=== PATIENT | male | born 1935 | race American Indian/Alaskan Native ===

== ENCOUNTER 2021-12-06 13:46 | Emergency (ER) | payer MEDICARE ==
--- NOTE | 2021-12-06 13:55 | Emergency Department Report ---
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 After clarification with family it seems that patient was normal earlier today and went to [place] for outpatient chest x-ray. They returned about 11:50 AM. Around 12:15 PM he noticed that he was lethargic and unresponsive and " weight". After his stroke in October patient was discharged from here to rehab facility. Since he has been home he is typically alert, can have a conve rsation, but is unable to ambulate and requires assistance for transfer but can assist with scooting up in the bed. Family does not recall if patient has specific unilateral weakness but as per medical record patient did have some right sided weakness with previous left thalmic stroke. Patient currently presents with aphasia, left gaze preference, and right arm paralysis. Code stroke initiated upon arrival and telemetry neurologist consulted. EMS also reported that 2 days ago patient was diagnosed with DVT and started on Eliquis. They state family has not filled the prescription. I have been unable to confirm this with the family since they are not answering my calls (despite multiple attempts) after initial conversation. Mrs Maier [phone] - Related Data Home Medications: Home Medications Medication Instructions Recorded Confirmed Last Taken Aspirin [Aspirin BABY CHEW TAB] 81 mg PO DAILY 10/28/21 10/28/21 10/27/21 Insulin Detemir [Levemir VIAL] 20 unit SQ QHS 10/28/21 11/01/21 10/26/21 Metformin HCl [metFORMIN] 1,000 mg PO BID 10/28/21 11/01/21 10/27/21 Tamsulosin [Flomax] 0.4 mg PO DAILY 10/28/21 11/01/21 10/27/21 allopurinoL [Zyloprim] 100 mg PO BID 10/28/21 10/28/21 10/27/21 amLODIPine 10 mg PO DAILY 10/28/21 11/01/21 10/27/21 Previous Rx's Medication Instructions Recorded Last Taken Type AtorvaSTATin [Lipitor] 40 mg PO QHS #30 tablet 11/03/21 Unknown Rx dexAMETHasone [Dexamethasone] 4 mg PO DAILY #6 tablet 11/03/21 Unknown Rx Allergies/Adverse Reactions: Allergies Allergy/AdvReac Type Severity Reaction Status Date / Time No Known Allergies Allergy Verified 11/01/21 15:28 ED Review of Systems ROS: Stated complaint: STROKE-LIKE SYMPTOMS Other details as noted in HPI Comment: Unobtainable due to pts medical conditions ED Past Medical Hx - Past Medical History Hx Diabetes: Yes Hx HIV: No - Social History Smoking Status: Unknown if ever smoked - Medications Home Medications: Home Medications Medication Instructions Recorded Confirmed Last Taken Type Aspirin [Aspirin BABY CHEW TAB] 81 mg PO DAILY 10/28/21 10/28/21 10/27/21 History Insulin Detemir [Levemir VIAL] 20 unit SQ QHS 10/28/21 11/01/21 10/26/21 History Metformin HCl [metFORMIN] 1,000 mg PO BID 10/28/21 11/01/21 10/27/21 History Tamsulosin [Flomax] 0.4 mg PO DAILY 10/28/21 11/01/21 10/27/21 History allopurinoL [Zyloprim] 100 mg PO BID 10/28/21 10/28/21 10/27/21 History amLODIPine 10 mg PO DAILY 10/28/21 11/01/21 10/27/21 History AtorvaSTATin [Lipitor] 40 mg PO QHS #30 tablet 11/03/21 Unknown Rx dexAMETHasone [Dexamethasone] 4 mg PO DAILY #6 tablet 11/03/21 Unknown Rx ED Neuro Physical Exam - General Suspected Stroke: Yes - NIHSS Assessment Interval: Baseline 1a. Level of Consciousness: alert/keenly responsive 1b. LOC Questions: answers no questions correctly 1c. LOC Commands: performs no tasks correctly 2. Best Gaze: forced deviation 3. Visual: partial hemianopia 4. Facial Palsy: minor paralysis 5b. Motor Arm Right: no movement 5a. Motor Arm Left: no drift 6a. Motor Leg Left: no gravity effort 6b. Motor Leg Right: no gravity effort 7. Limb Ataxia: absent 8. Sensory: mild/moderate sensory loss 9. Best Language: mute/global aphasia 10. Dysarthria: severe dysarthria 11. Extinction/Inattention: no abnormality Total Score: 24 Stroke Severity: Severe Stroke - Other Other exam information: General: No acute distress Head: Atraumatic Eyes: normal appearance ENT: Moist mucous membranes Neck: Normal appearance, no midline tenderness Chest: Clear to auscultation bilaterally CV: Regular rate and rhythm Abdomen: Soft, normal bowel sounds, nontender, nondistended, no rebound or guarding Back: Normal inspection Extremity: Normal inspection, full range of motion Neuro: Alert O x 3, see NIH stroke Psych: Appropriate behavior ED Course Vital Signs 12/06/21 12/06/21 12/06/21 14:28 15:00 15:03 Pulse Rate 104 H 101 H 104 H Respiratory 18 17 Rate Blood Pressure 104/64 112/64 95/55 [Left] O2 Sat by Pulse 91 91 91 Oximetry 12/06/21 15:10 Pulse Rate Respiratory Rate Blood Pressure [Left] O2 Sat by Pulse 95 Oximetry - Reevaluation(s) Reevaluation #1: 12/06/21 15:00 I spoke to family shortly after pt's return from CT and they clarified - Consultations Consultation #1: 12/06/21 Neuro consulted upon pt's arrival to ed. Case discussed multiple times. pt not a tpa candidate due to montilla-white matter changes identified on CTA head. Recommend transfer for intervention Consultation #2: 12/06/21 15:00 neuro interventionalist at [place] Dr Pearson. ct images sent to [facility]. family contact number provided 12/06/21 15:20 patient accepted - Lab Data Result diagrams: 12/06/21 14:32 12/06/21 14:32 Lab Results 12/06/21 12/06/21 12/06/21 Range/Units 14:32 14:32 14:32 WBC 8.2 (4.5-11.0) K/mm3 RBC 4.53 (3.65-5.03) M/mm3 Hgb 12.9 (11.8-15.2) gm/dl Hct 39.9 (35.5-45.6) % MCV 88 (84-94) fl MCH 29 (28-32) pg MCHC 32 (32-34) % RDW 15.2 (13.2-15.2) % Plt Count 184 (140-440) K/mm3 Lymph % (Auto) 11.3 L (13.4-35.0) % [place] % (Auto) 6.8 (0.0-7.3) % Eos % (Auto) 0.8 (0.0-4.3) % Baso % (Auto) 0.2 (0.0-1.8) % Lymph # (Auto) 0.9 L (1.2-5.4) K/mm3 [place] # (Auto) 0.6 (0.0-0.8) K/mm3 Eos # (Auto) 0.1 (0.0-0.4) K/mm3 Baso # (Auto) 0.0 (0.0-0.1) K/mm3 Seg Neutrophils % 80.9 H (40.0-70.0) % Seg Neutrophils # 6.6 (1.8-7.7) K/mm3 PT 17.4 H (12.2-14.9) Sec. INR 1.29 H (0.87-1.13) APTT 30.7 (24.2-36.6) Sec. Thrombin Time 18.4 (15.1-19.6) Sec. Sodium 130 L (137-145) mmol/L Potassium 4.5 (3.6-5.0) mmol/L Chloride 104.2 (98-107) mmol/L Carbon Dioxide 12 L (22-30) mmol/L Anion Gap 18 mmol/L BUN 37 H (9-20) mg/dL Creatinine 1.2 (0.8-1.3) mg/dL Estimated GFR > 60 ml/min BUN/Creatinine Ratio 31 % Glucose 131 H (75-100) mg/dL POC Glucose (70-105) mg/dL Calcium 8.5 (8.4-10.2) mg/dL Total Bilirubin 0.30 (0.1-1.2) mg/dL AST 13 (5-40) units/L ALT 13 (7-56) units/L Alkaline Phosphatase 77 (35-129) units/L Total Creatine Kinase 18 L (55-170) units/L CK-MB (CK-2) 1.8 (0.0-4.0) ng/mL CK-MB (CK-2) Rel Index 10.0 H (0-4) Troponin T < 0.010 (0.00-0.029) ng/mL Total Protein 6.2 L (6.3-8.2) g/dL Albumin 2.7 L (3.9-5) g/dL Albumin/Globulin Ratio 0.8 % 12/06/21 Range/Units 15:33 WBC (4.5-11.0) K/mm3 RBC (3.65-5.03) M/mm3 Hgb (11.8-15.2) gm/dl Hct (35.5-45.6) % MCV (84-94) fl MCH (28-32) pg MCHC (32-34) % RDW (13.2-15.2) % Plt Count (140-440) K/mm3 Lymph % (Auto) (13.4-35.0) % [place] % (Auto) (0.0-7.3) % Eos % (Auto) (0.0-4.3) % Baso % (Auto) (0.0-1.8) % Lymph # (Auto) (1.2-5.4) K/mm3 [place] # (Auto) (0.0-0.8) K/mm3 Eos # (Auto) (0.0-0.4) K/mm3 Baso # (Auto) (0.0-0.1) K/mm3 Seg Neutrophils % (40.0-70.0) % Seg Neutrophils # (1.8-7.7) K/mm3 PT (12.2-14.9) Sec. INR (0.87-1.13) APTT (24.2-36.6) Sec. Thrombin Time (15.1-19.6) Sec. Sodium (137-145) mmol/L Potassium (3.6-5.0) mmol/L Chloride (98-107) mmol/L Carbon Dioxide (22-30) mmol/L Anion Gap mmol/L BUN (9-20) mg/dL Creatinine (0.8-1.3) mg/dL Estimated GFR ml/min BUN/Creatinine Ratio % Glucose (75-100) mg/dL POC Glucose 112 H (70-105) mg/dL Calcium (8.4-10.2) mg/dL Total Bilirubin (0.1-1.2) mg/dL AST (5-40) units/L ALT (7-56) units/L Alkaline Phosphatase (35-129) units/L Total Creatine Kinase (55-170) units/L CK-MB (CK-2) (0.0-4.0) ng/mL CK-MB (CK-2) Rel Index (0-4) Troponin T (0.00-0.029) ng/mL Total Protein (6.3-8.2) g/dL Albumin (3.9-5) g/dL Albumin/Globulin Ratio % - EKG Data -: EKG Interpreted by Sc EKG shows normal: sinus rhythm, intervals (qtc 422), QRS complexes (qrsd 79), ST-T waves (no stemi) Rate: tachycardia (102) - Radiology Data Radiology results: report reviewed CT HEAD WITHOUT CONTRAST INDICATION : CODE STROKE CALL [phone]. TECHNIQUE: Axial imaging performed from the skull apex through the skull base without the use of contrast. Sagittal and coronal reformatted images. All CT scans at this location are performed using CT dose reduction for [employer] by means of automated exposure control. COMPARISON: 10/28/2021 FINDINGS: Parenchyma: Advanced volume loss and chronic white matter changes are again noted. Chronic lacunar infarct in the left anterior basal ganglia is noted. Multiple focal chronic infarcts in the po sterior cerebellar hemispheres are also noted and unchanged. No acute parenchymal abnormality, hemorrhage or extra-axial fluid collection is detected. Ventricles: Ventricles are normal in size and appear symmetric. Bones: No acute osseous abnormality. Sinuses: There is extensive mucosal thickening and fluid in the right maxillary sinus which is unchanged. The remaining sinuses are clear. There is moderate fluid in the left mastoid air cells which is unchanged. Soft tissues: Soft tissues including the orbits appear normal. IMPRESSION: No acute intracranial abnormality is appreciated. Chronic findings as described above which are unchanged since 10/28/2021. CT angio head HISTORY: stroke sx 100 ML OMNI 350 COMPARISON: CTA head from October 28, 2021. TECHNIQUE: CTA of the head is performed after IV contrast. 3-D/MIP reformats were postprocessed. Percentage stenosis is determined by direct quantitative measurements of diseased internal carotid artery diameter compared with normal distal internal carotid artery reference segments or by criteria similar to NASCET where applicable. All CT scans at this location are performed using CT dose reduction for [employer] by means of automated exposure control. FINDINGS: CTA HEAD: Intracranial internal carotid arteries: No occlusion or significant stenosis. Anterior cerebral arteries: No occlusion or significant stenosis. Middle cerebral arteries: Just after the bifurcation, there is a left into superior MCA occlusion. Intracranial vertebral arteries: No occlusion or significant stenosis. Basilar artery: No occlusion or significant stenosis. Posterior cerebral arteries: No occlusion or significant stenosis. No aneurysm. Additional findings: Loss of montilla-white matter differentiation along the left insula, for example on image 141 of series 3. IMPRESSION: 1. CTA HEAD: Left proximal M2 MCA branch occlusion with developing left with infarction seen along the left insula. Informed DR. Keyes at at 1:15 CT HEAD WITHOUT CONTRAST INDICATION : CODE STROKE CALL [phone]. TECHNIQUE: Axial imaging performed from the skull apex through the skull base without the use of contrast. Sagittal and coronal reformatted images. All CT scans at this location are performed using CT dose reduction for ALARA by means of automated exposure control. COMPARISON: 10/28/2021 FINDINGS: Parenchyma: Advanced volume loss and chronic white matter changes are again noted. Chronic lacunar infarct in the left anterior basal ganglia is noted. Multiple focal chronic infarcts in the po sterior cerebellar hemispheres are also noted and unchanged. No acute parenchymal abnormality, hemorrhage or extra-axial fluid collection is detected. Ventricles: Ventricles are normal in size and appear symmetric. Bones: No acute osseous abnormality. Sinuses: There is extensive mucosal thickening and fluid in the right maxillary sinus which is unchanged. The remaining sinuses are clear. There is moderate fluid in the left mastoid air cells which is unchanged. Soft tissues: Soft tissues including the orbits appear normal. IMPRESSION: No acute intracranial abnormality is appreciated. Chronic findings as described above which are unchanged since 10/28/2021. - Medical Decision Making 86-year-old male presents to the hospital with acute stroke symptoms with NIH stroke scale 24. Unfortunately, patient's not a tPA candidate given montilla-white matter changes seen on CT angiogram. Patient however does have large vessel occlusion at the proximal M2 segment which may be amenable to emergent intervention. Patient instructed by [place] interventional neurologist for transfer and treatment. After initial conversation to clarify history of present illness I have been unsuccessful in recontacting patient's despite multiple attempts. phone rings, goes to [employer], and a message was left to call the ED. Number also provided to interventionalist as point of contact. Critical Care Time: Yes Critical care time in (mins) excluding proc time.: 75 Critical care attestation.: If time is entered above; I have spent that time in minutes in the direct care of this critically ill patient, excluding procedure time. Critical Care Time: 75 Minutes of critical care time excluding procedures were used in the care of the patient. I came immediately to the bedside upon patient's arrival. I obtained history from EMS at the bedside. I discussed treatment plan with the nursing team members. I reviewed electronic record. I spoke with family to obtain medical history. Patient required multiple interventions and reassessments. I consulted with telemetry neurologist and neuro application architect and coordinated emergent transfer to [facility]. ED Disposition Clinical Impression: Acute CVA (cerebrovascular accident), Acute ischemic left MCA stroke Disposition: 02 SHORT TERM HOSPITAL Is pt being admited?: No Condition: Stable Time of Disposition: 15:50
--- NOTE | 2021-12-06 14:16 | Cat Scan Report ---
CT HEAD WITHOUT CONTRAST INDICATION : CODE STROKE CALL [phone]. TECHNIQUE: Axial imaging performed from the skull apex through the skull base without the use of con trast. Sagittal and coronal reformatted images. All CT scans at this location are performed using C T dose reduction for ALARA by means of automated exposure control. COMPARISON: 10/28/2021 FINDINGS: Parenchyma: Advanced volume loss and chronic white matter changes are again noted. Chronic lacunar i nfarct in the left anterior basal ganglia is noted. Multiple focal chronic infarcts in the posterior cerebellar hemispheres are also noted and unchanged. No acute parenchymal abnormality, hemorrhage or extra-axial fluid collection is detected. Ventricles: Ventricles are normal in size and appear symmetric. Bones: No acute osseous abnormality. Sinuses: There is extensive mucosal thickening and fluid in the right maxillary sinus which is uncha nged. The remaining sinuses are clear. There is moderate fluid in the left mastoid air cells which is unchanged. Soft tissues: Soft tissues including the orbits appear normal. IMPRESSION: No acute intracranial abnormality is appreciated. Chronic findings as described above whi ch are unchanged since 10/28/2021. CODE STROKE: Time of Communication (TRAFFIC LIEUTENANT/CDT): 1311 hours Licensed Practitioner Receiving Report: GEN Phan Signer Name: Bar Guthrie Jr, MD Signed: 12/06/2021 2:12 PM Workstation Name: [id number]
--- NOTE | 2021-12-06 14:21 | Cat Scan Report ---
CT angio head HISTORY: stroke sx 100 ML OMNI 350 COMPARISON: CTA head from October 28, 2021. TECHNIQUE: CTA of the head is performed after IV contrast. 3-D/MIP reformats were postprocessed. Per centage stenosis is determined by direct quantitative measurements of diseased internal carotid arter y diameter compared with normal distal internal carotid artery reference segments or by criteria medina lar to NASCET where applicable. All CT scans at this location are performed using CT dose reduction f or ALARA by means of automated exposure control. FINDINGS: CTA HEAD: Intracranial internal carotid arteries: No occlusion or significant stenosis. Anterior cerebral arteries: No occlusion or significant stenosis. Middle cerebral arteries: Just after the bifurcation, there is a left into superior MCA occlusion. Intracranial vertebral arteries: No occlusion or significant stenosis. Basilar artery: No occlusion or significant stenosis. Posterior cerebral arteries: No occlusion or significant stenosis. No aneurysm. Additional findings: Loss of montilla-white matter differentiation along the left insula, for example on image 141 of series 3. IMPRESSION: 1. CTA HEAD: Left proximal M2 MCA branch occlusion with developing left with infarction seen along th e left insula. Informed DR. Keyes at at 1:15 Signer Name: Brian Rios MD Signed: 12/06/2021 2:17 PM Workstation Name: [id number]
--- NOTE | 2021-12-06 14:24 | Cat Scan Report ---
CT angio neck HISTORY: stroke sx 100 ML OMNI 350 COMPARISON: CTA chest October 29, 2021. TECHNIQUE: Routine CTA of the neck is performed. 3-D/MIP reformats were postprocessed. Percentage st enosis is determined by direct quantitative measurements of diseased internal carotid artery diameter compared with normal distal internal carotid artery reference segments or by criteria similar to STEPHANIE CET where applicable. All CT scans at this location are performed using CT dose reduction for ALARA b y means of automated exposure control. FINDINGS: Aortic arch: No significant abnormality. Cervical vertebral arteries: No occlusion or hemodynamically significant stenosis. Common Carotid arteries: No occlusion or hemodynamically significant stenosis. Internal carotid arteries: No occlusion or hemodynamically significant stenosis. Additional findings: Bilateral parenchymal opacities, decreased from prior exam and most consistent w ith sequela of Covid pneumonia. Diffuse spondylosis of the cervical spine., IMPRESSION: 1. No occlusion or significant stenosis. 2. Persistent sequela of Covid pneumonia in the lungs. Signer Name: Brian Rios MD Signed: 12/06/2021 2:19 PM Workstation Name: [id number]
[2021-12-06 14:51] LABS: Basophils % (Auto) 0.2 % (0.0-1.8); Eosinophils # (Auto) 0.1 K/mm3 (0.0-0.4); Eosinophils % (Auto) 0.8 % (0.0-4.3); Hematocrit 39.9 % (35.5-45.6); Hemoglobin 12.9 gm/dl (11.8-15.2); Lymphocytes # (Auto) 0.9 K/mm3 (1.2-5.4); Lymphocytes % (Auto) 11.3 % (13.4-35.0); Mean Corpuscular HGB Conc 32 % (32-34); Mean Corpuscular Volume 88 fl (84-94); Monocytes # (Auto) 0.6 K/mm3 (0.0-0.8); Monocytes % (Auto) 6.8 % (0.0-7.3); Platelet Count 184 K/mm3 (140-440); Red Blood Count 4.53 M/mm3 (3.65-5.03); Red Cell Distribution Width 15.2 % (13.2-15.2)
[2021-12-06 15:01] LABS: INR 1.29 (0.87-1.13)
[2021-12-06 15:02] LABS: Partial Thromboplastin Time 30.7 Sec. (24.2-36.6); Thrombin Time 18.4 Sec. (15.1-19.6)
[2021-12-06 15:04] VITALS: BP 95/55
--- NOTE | 2021-12-06 15:14 | Emergency Department Report ---
Blank Doc - Documentation Documentation: [facility] Consult Note # Demographics Consult Type: Acute Stroke Level 1 (0-4.5 hrs) Patient Location: Emergency Room First Name: rodriguez Last Name: jovani Date of : 1935 Age: 86 Gender: Male Facility: [facility] Time of Initial Page ( Time): 12/06/2021, 13:51 Time of Return Call ( Time): 12/06/2021, 13:53 # HPI History: 86 year old male with hx of stroke in past, DVT on eliquis possibly (unable to get hold of family) presents with right sided deficits. Patient was at home and EMS was called as he was having right sided weakness. Unclear when patient was fully normal as ED not able to get hold of family and patient is mute not able to provide this history. Last Known Normal: unclear LKN, as per EMS 1 pm EST but no family there to confirm and unable to get hold of family over the phone Duration: hours unclear # Scores Time of exam and NIHSS (): 12/06/2021, 14:40 Level of Consciousness 1a: [0] = Alert; keenly responsive LOC Questions 1b: [2] = Answers neither correctly LOC Commands 1c: [2] = Performs neither correctly Best Gaze 2: [2] = Forced deviation Visual 3: [1] = Partial hemianopia Facial Palsy 4: [1] = Minor paralysis Motor Arm Left 5a: [0] = No drift Motor Arm Right 5b: [4] = No movement Motor Leg Left 6a: [3] = No effort against gravity Motor Leg Right 6b: [3] = No effort against gravity Limb Ataxia 7: [0] = Absent Sensory 8: [1] = [id number] sensory loss Best Language 9: [3] = Mute Dysarthria 10: [2] = Severe dysarthria Extinction and Inattention 11: [0] = No abnormality NIHSS Total: 24 # PMH-FH-SH Past Medical History: Diabetes hypertension DVT Social History: lives with family Medications: unknown # Data Time Head CT personally read by me ( Time): 12/06/2021, 14:[address]: no bleed per radiologist read CTA Head: MCA occlusion per radiologist read There are early changes on CTA with loss of montilla-white differentiation and infarction noted of the insula as per radiology report. CTA Neck: patent vessels per radiologist read # Assessment Impression: 86 year old male with hx of DVT possibly on Eliquis, HTN, stroke presents with right sided deficits. LKN is unclear as family is not at bedside and we are having a hard-time getting hold of the family over the phone. As per EMS symptoms started about an hour ago but again this is not clear and we are unable to confirm when was the patient last normal. Patient also possibly onEliquis for recent DVT. NIHSS: 24 for right side weakness, gaze and mute. CTH/CTA was reported by radiology (CTA images were not uploaded to be reviewed by me) showing left M2 occlusion and also early changes on CT already showing loss of montilla-white differentiation/infarction of insula which is concerning for symptoms started earlier than reported. Given the above early changes on CT, confusing timeline and possibly being on Eliquis, I believe patient to not be a good tpa candidate. In addition unable to get hold of family to discuss/confirm any parts of the history. Patient does meet criteria for IR which should be done in an emergent fashion. I have discussed this with Dr. Keyes and she is attempting to transfer the patient out to an IR capable facility. # Plan Thrombolytic/Intervention: IA Intervention Thrombolytic Exclusion (< 3 hour window): time of onset unclear on anticoagulation other (see below) Thrombolytic Exclusion: Unclear timeline, early changes on CT showing loss of montilla-white differentiation, possibly on Eliquis, unable to reach family to discuss further Blood Pressure Management: IV fluid bolus Target Blood Pressure: SBP < 220 DBP < 120 Labs: CBC comprehensive metabolic panel ESR hemoglobin A1c troponin TSH ua Imaging: (urgency: routine): MRI Brain without contrast Diagnostic Test: echo with bubble study Therapy/Evaluation: NPO until swallow evaluation PT/OT evaluation speech/swallow consultation Medication: aspirin 81 mg PLUS clopidogrel (Plavix) 75 mg for 21 days, then monotherapy therafter start statin with goal of LDL < 70 Before resuming Anticoagulation, will need to assess stroke burden on MRI to confirm risk vs. benefit DVT Prophylaxis: chemical DVT prophylaxis Other: consult on-site neurology service for full work-up and evaluation recommendations consult neurosurgery or IR emergently LDL < 70 If patient has any neurological deterioration please call me back immediately telemetry monitoring I have discussed my recommendations with the referring provider Disposition: transfer to IA capable facility
[2021-12-06 15:16] LABS: Creatine Kinase MB 1.8 ng/mL (0.0-4.0)
[2021-12-06 15:17] LABS: Alanine Aminotransferase 13 units/L (7-56); Albumin 2.7 g/dL (3.9-5); BUN/Creatinine Ratio 31; Blood Urea Nitrogen 37 mg/dL (9-20); Calcium 8.5 mg/dL (8.4-10.2); Hemolysis Index 15
== END 2021-12-06 16:10 | disposition short-term general hospital (02) ==
LOC: ED 13:46
DX: I63.9 Cerebral infarction, unspecified (principal); I63.511 Cerebral infarction due to unspecified occlusion or stenosis of right middle cerebral artery; I10 Essential (primary) hypertension; E11.9 Type 2 diabetes mellitus without complications
CPT/HCPCS: 36415; 70450; 70496; 70498; 80053; 82550; 82553; 82962; 84484; 85025; 85610; 85670; 85730; 93005; 99291; Q9967